=== PATIENT | male | born 1970 | race African-American/Black ===

== ENCOUNTER → 2018-10-26 | Outpatient (CLI) | payer OTHER ==
--- NOTE | 2018-11-03 11:22 | SLEEP ---
[address] [address] SLEEP STUDY REPORT Name: PASHA KELLER [id number] Admission: 10/26/18 Attend Phys: Citlalli Chauhan Discharge: Date of : 66 Report #: [id number] THIS REPORT FOR: //name// CC: Anmol Boone DO This study has been reviewed in its entirety by a board certified sleep specialist DATE OF SERVICE: 10/26/2018 ATTENDING PHYSICIAN: Dr. Anmol Boone. The patient is 48 years old, who weighs 280 pounds with a BMI of 35. The patient's [place] score was 6. The patient underwent home sleep study performed by [facility]. Total recording time was 402 minutes. During the night study, the patient had 327 obstructive apneas, 6 central apneas, no mixed apneas and 61 hypopneas. The patient's apnea-hypopnea index was 61.8 per hour. Supine index was the same. Nocturnal oximetry study revealed an average oxygen saturation of 92% and the lowest of 83%. Fifty minutes were spent in oxygen saturation of less than 90%. Mean heart rate was 71 beats per minute with a maximum of 95 beats per minute. IMPRESSION: 1. Severe sleep apnea-hypopnea syndrome at an AHI of 61.8 per hour. 2. Nocturnal hypoxia secondary to obstructive sleep apnea. RECOMMENDATIONS: 1. The patient would benefit from treatment of sleep apnea with CPAP. This can be done in-lab versus home auto-titration study. 2. Once optimum pressure is achieved, then follow up in 4-6 weeks to assess compliance with treatment and to document clinical improvement. 3. Weight loss is strongly advised. 4. Avoid RELIABILITY MANAGER depressants. 5. Cautioned regarding driving until symptoms of sleep apnea resolve with the use of CPAP. <ELECTRONICALLY SIGNED> By: Rene Ott MD 11/03/18 [id number] Ott MD /nt
== END ==
LOC: M.SLEEPLAB 15:00
DX: G47.33 Obstructive sleep apnea (adult) (pediatric) (principal); G47.34 Idiopathic sleep related nonobstructive alveolar hypoventilation; K21.9 Gastro-esophageal reflux disease without esophagitis; F41.9 Anxiety disorder, unspecified; Z82.49 Family history of ischemic heart disease and other diseases of the circulatory system; Z83.3 Family history of diabetes mellitus; Z80.0 Family history of malignant neoplasm of digestive organs; Z80.3 Family history of malignant neoplasm of breast; Z87.891 Personal history of nicotine dependence; Z79.899 Other long term (current) drug therapy

== ENCOUNTER → 2018-12-06 | Outpatient (CLI) | payer OTHER ==
--- NOTE | 2018-12-08 06:51 | SLEEP ---
[address] [address] SLEEP STUDY REPORT Name: PASHA KELLER [id number] Admission: 12/06/18 Attend Phys: Citlalli Chauhan Discharge: Date of : 66 Report #: [id number] THIS REPORT FOR: //name// CC: Anmol Boone DO This study has been reviewed in its entirety by a board certified sleep specialist DATE OF SERVICE: 12/06/2018 ATTENDING PHYSICIAN: Dr. Anmol Boone. The patient is 48 years old who weighs 280 pounds with a BMI of 35. The patient had a home sleep study and was found to have severe HELGA at an AHI of 61 per hour. As a result, he was referred back to [facility] for CPAP titration study. During the night study, the patient spent 400 minutes in bed and slept for 345 minutes with a sleep efficiency of 86%. Sleep latency was 5.7 minutes with a REM latency of 72 minutes. Overall, sleep architecture showed normal stage 1 and stage 2 sleep, normal slow wave and normal REM sleep. EKG monitoring revealed an average heart rate of 62 beats per minute. No sustained arrhythmias observed. PLMS were seen at an index of 5 per hour and 2.3 per hour caused EEG arousals. The patient was started on CPAP at a pressure of 5 cm water and titrated up to 12 cm of water. At the final pressure, the patient slept for 15.4 minutes including 5.8 minutes of REM sleep. The patient had supine sleep as well. The patient's AHI was reduced to 3.9 per hour and oxygen saturation remained above 96%. IMPRESSION: 1. Severe sleep apnea diagnosed by home sleep study. 2. No clinically significant periodic limb movements. RECOMMENDATIONS: 1. CPAP at 12 cm of water completely eliminated the patient's sleep apnea and should be used on a nightly basis. 2. Follow up in 4-6 weeks to assess compliance with CPAP and to document clinical improvement. 3. Weight loss is strongly advised. 4. Avoid [place] [address] SLEEP STUDY REPORT Name: PASHA KELLER [facility]#: [id number] Admission: 12/06/18 Attend Phys: Citlalli Chauhan Discharge: Date of : 66 Report #: [id number] 5. Cautioned regarding driving until symptoms of sleep apnea resolve with the use of CPAP. <ELECTRONICALLY SIGNED> By: Rene Ott MD 12/08/18 [id number] Ott MD /nt
== END ==
LOC: M.SLEEPLAB 19:56
DX: G47.30 Sleep apnea, unspecified (principal)

== ENCOUNTER 2021-01-22 18:56 | Emergency (ER) | payer OTHER ==
[~2021-01-22] VITALS: Ht 190.5 cm; Wt 97.5 kg
[2021-01-22] MEDS ORDERED: ZYRTEC10 M5 PO (19:17)
[2021-01-22 20:19] LABS: HEMATOCRIT 45.1 % (42.0-52.0); HEMOGLOBIN 15.7 gm/dL (14.0-18.0); MCH 31.6 pg (26.0-34.0); MCHC 34.8 g/dL (28.0-37.0); MPV 8.8 fl. (7.2-11.1); RBC 4.95 mil/uL (4.50-6.00); RDW-CV 13.2 % (10.5-14.5); WBC 3.8 thou/uL (4.0-11.0)
[2021-01-22 20:33] LABS: CREATININE 1.1 mg/dL (0.6-1.3)
[2021-01-22 20:38] LABS: ALBUMIN 3.2 g/dL (3.4-5.0); TOTAL BILIRUBIN 0.5 mg/dL (<0.1-1.0); TOTAL PROTEIN 7.4 g/dL (6.4-8.2)
[2021-01-22 23:48] VITALS: BP 139/87
== END 2021-01-22 23:49 | disposition home or self-care (01) ==
LOC: M.ERS 18:56
PROVIDERS: Personal Emergency Response Attendant
DX: U07.1 COVID-19 (principal); J18.9 Pneumonia, unspecified organism